=== PATIENT | female | born 1935 | race Caucasian/White ===

== ENCOUNTER → 2019-01-01 | Outpatient (CLI) | payer OTHER ==
[~2019-01-01] VITALS: Ht 160 cm; Wt 63.5 kg
[~2019-01-01] MED LIST: ACEON4 MG PO; ADULT LOW DOSE81 MG PO; AGGRENOX 25 MG1 EACH PO; ARICEPT10 M1 PO; BACTRIM 400-801 EACH PO; BENICAR20 MG PO; BENICAR40 MG PO; BYSTOLIC10 MG PO; BYSTOLIC20 MG PO; CIPROFLOXACIN500 M1 PO; CO Q-10300 MG PO; CRESTOR10 MG PO; FISH OIL 1,0001 EAC5 PO; FISH OIL 1,001000 M2 PO; IPRATROPIUM BRO30 ML NASAL; ISOSORBIDE DINI30 MG PO; KLOR-CON 1010 MEQ PO; LASIX 20 MG TAB20 MG PO; LASIX 40 MG TAB40 M1; LASIX 40 MG TAB40 MG OR; LOSARTAN POTASS50 MG PO; MYRBETRIQ50 MG PO; NAMENDA 10 MG T10 MG PO; NEXIUM40 MG PO; PLAVIX 75 MG TA75 M1 PO; PRILOSEC 20 MG20 MG PO; PROBIOTIC1 EAC1 PO; PROBIOTIC1 EACH PO; PROPRANOLOL 1010 MG PO; QUINAPRIL 20 MG20 MG PO; SYNTHROID25 MC1 PO; TRAMADOL 50 MG50 MG PO; VITAMIN C500 M2 PO; VITAMIN D 11000 UNIT PO; VITAMIN D1000 UNI1 PO; VITAMIN D2000 UNIT PO; VITAMIN E200 UNI1 PO
--- NOTE | ~2019-01-01 | P ---
[facility] [place] [address] PROCEDURE REPORT Name: VENTURA LEVI Room #: [facility] [id number] Admission: 01/01/19 Attend Phys: Derek Robbins Discharge: Date of : 31 Report #: [id number] THIS REPORT FOR: //name// CC: Derek Young MD DATE OF SERVICE: 01/01/2019 PROCEDURE PERFORMED: Upper endoscopy with esophageal dilation. HISTORY OF PRESENT ILLNESS: The patient is an 83-year-old female who reports intermittent dysphagia only to liquids. When asking her and her several times, she does not have difficulty with solids or thickened liquids in general. 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 She is on Plavix. Her last dose was yesterday. No previous history of upper endoscopy. Denies any heartburn. Denies any odynophagia. Her weight has been stable. DESCRIPTION OF PROCEDURE: The risks and benefits of the procedure were explained to the patient, those risks including but not limited to bleeding, perforation, the risk of sedation. She understood these risks and gave informed consent. Sedation was given using propofol per anesthesia. Next, using a standard Olympus upper endoscope, the scope was placed in the patient's mouth and advanced under direct vision through the esophagus, stomach and into the second portion of the duodenum. The larynx was normal in appearance. The esophagus was normal, although somewhat tortuous, but no evidence of stricture or narrowing. GE junction was normal. Upon entering the stomach, a large hiatal hernia was noted. Overall, the gastric mucosa was normal. Some mild erythema was noted. Because of her Plavix, I did not obtain biopsies, but no erosions or no ulcerations were noted. The pylorus was normal and patent. The duodenal bulb, first and second portion were all normal. The scope was then brought back up into the patient's stomach and a Savary guidewire was inserted through the scope, leaving the guidewire in place as the scope was withdrawn. Next, a 48-Anguillan Savary dilation of the esophagus was performed without difficulty. The wire and dilator were removed. The scope was reintroduced into the patient's stomach. There was no evidence of mucosal tear after dilation. The scope was then withdrawn and the procedure terminated. The patient tolerated the procedure well. IMPRESSION: 1. Large hiatal hernia. 2. Otherwise, normal upper endoscopy. RECOMMENDATIONS: Observe the patient post-dilation. If there is no improvement with dysphagia, I would recommend a speech pathology video swallow. The patient does have a history of strokes and at times clear thin liquids are more [address] [address] PROCEDURE REPORT Name: VENTURA LEVI Room #: REG KOREY Bonner#: [id number] Admission: 01/01/19 Attend Phys: Derek Robbins Discharge: Date of : 31 Report #: [id number] difficult in these patients. She may benefit from speech pathology swallowing techniques or thickened liquids in the future. Thank you for allowing me to participate in her care. By: [id number] Derek Burrows MD /nt
== END | disposition home or self-care (01) ==
LOC: GI 09:17
DX: R13.19 Other dysphagia (principal); K44.9 Diaphragmatic hernia without obstruction or gangrene; G20 Parkinson's disease; I10 Essential (primary) hypertension; F03.90 Unspecified dementia, unspecified severity, without behavioral disturbance, psychotic disturbance, mood disturbance, and anxiety; M19.90 Unspecified osteoarthritis, unspecified site; E03.9 Hypothyroidism, unspecified; Z98.890 Other specified postprocedural states; Z90.710 Acquired absence of both cervix and uterus; Z95.2 Presence of prosthetic heart valve; Z86.73 Personal history of transient ischemic attack (TIA), and cerebral infarction without residual deficits; Z98.0 Intestinal bypass and anastomosis status; Z79.899 Other long term (current) drug therapy; Z79.01 Long term (current) use of anticoagulants; Z87.19 Personal history of other diseases of the digestive system; Z88.8 Allergy status to other drugs, medicaments and biological substances
CPT/HCPCS: 62110; 62900

== ENCOUNTER → 2020-04-15 | Outpatient (CLI) | payer OTHER | LOC: SJCVCIMAG 10:22 | PROVIDERS: ATTEND Internal Medicine Cardiovascular Disease | DX: I82.411 Acute embolism and thrombosis of right femoral vein (principal); R94.31 Abnormal electrocardiogram [ECG] [EKG]; I44.4 Left anterior fascicular block; I25.10 Atherosclerotic heart disease of native coronary artery without angina pectoris; I10 Essential (primary) hypertension; E78.00 Pure hypercholesterolemia, unspecified; G20 Parkinson's disease; F02.80 Dementia in other diseases classified elsewhere, unspecified severity, without behavioral disturbance, psychotic disturbance, mood disturbance, and anxiety; I63.9 Cerebral infarction, unspecified; I48.0 Paroxysmal atrial fibrillation; D68.59 Other primary thrombophilia; Z95.2 Presence of prosthetic heart valve; Z79.899 Other long term (current) drug therapy; Z86.73 Personal history of transient ischemic attack (TIA), and cerebral infarction without residual deficits ==

== ENCOUNTER → 2020-07-01 | Outpatient (CLI) | payer OTHER | LOC: SJCVCIMAG 07:42 | PROVIDERS: ATTEND Internal Medicine Cardiovascular Disease | DX: I08.1 Rheumatic disorders of both mitral and tricuspid valves (principal); I82.411 Acute embolism and thrombosis of right femoral vein; I82.431 Acute embolism and thrombosis of right popliteal vein; R94.31 Abnormal electrocardiogram [ECG] [EKG]; I25.10 Atherosclerotic heart disease of native coronary artery without angina pectoris; I11.9 Hypertensive heart disease without heart failure; I48.0 Paroxysmal atrial fibrillation; D68.59 Other primary thrombophilia; E78.5 Hyperlipidemia, unspecified; I70.1 Atherosclerosis of renal artery; I82.401 Acute embolism and thrombosis of unspecified deep veins of right lower extremity; K21.9 Gastro-esophageal reflux disease without esophagitis; Z90.710 Acquired absence of both cervix and uterus; Z98.890 Other specified postprocedural states; Z95.2 Presence of prosthetic heart valve; Z88.8 Allergy status to other drugs, medicaments and biological substances; Z79.899 Other long term (current) drug therapy; Z86.16 Personal history of COVID-19; Z86.73 Personal history of transient ischemic attack (TIA), and cerebral infarction without residual deficits; Z82.49 Family history of ischemic heart disease and other diseases of the circulatory system ==